=== PATIENT | female | born 1935 | race Caucasian/White ===

== ENCOUNTER → 2017-07-07 | Day surgery (SDC) | payer MEDICARE ==
[~2017-07-07] MED LIST: BUPIVACAINE HCL 0.5% 10ML MPF VIAL INJ ONE; CEFAZOLIN SOD 2 GM/D5W 50ML 50 ML IV ONE; DEXAMETHASONE SOD PHOS INJ 4 MG/ML VIAL ONE; EPHEDRINE SULFATE INJ 50 MG/10 ML SYR ONE; FENTANYL CITRATE/PF 100MCG/2 ML INJ ONE; HYDRALAZINE HCL25 MG PO; LIDOCAINE HCL 2% LOCAL INJ 5 ML SDV VIAL INJ ONE; MIDAZOLAM HCL 2 MG/2 ML VIAL ONE; NEOSTIGMINE 1 MG/ML 10ML VIAL ONE; ONDANSETRON HCL INJ 2 MG/ML VIAL ONE; PANTOPRAZOLE SO40 MG PO; PRAMIPEXOLE DIHY1 MG PO; PROPOFOL IV EMULSION 10 MG/ML 20 ML VIAL ONE; SEVOFLURANE INHAL SOLN 250 ML PEN BTL ONE; TRAZODONE HCL50 MG PO
--- NOTE | 2017-07-27 01:18 | Operative Report ---
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 TITLE OF OPERATION: Garay bunionectomy of the left foot. PROCEDURE IN DETAIL: The patient was taken to the operating room in a mildly sedated state before placing on the operating table in supine position. Following induction of general anesthetic, the left lower extremity was elevated to 60 degrees to exsanguinate before inflating the pneumatic thigh tourniquet to 350 mmHg for hemostasis. Left lower extremity was placed upon the operating table prior to performing the following. Procedure #1 is the modified Cedrick bunionectomy: An approximately 6-cm dorsal linear incision made across the dorsal aspect of 1st metatarsophalangeal joint of the left foot, which allowed for deliverance of the head of the more of the phalanx into a more suitable position. A medial eminence resected. All those, areas it was noted that the digit was in adequate alignment. A 0.045-K-wire was used to at the toe. The base of proximal phalanx having been removed and the medial eminence removed, a 0.062-K-wire was introduced [id number] utilizing retrograde technique. This met head to stabilize. The area was irrigated, closed with 3-0 Vicryl, 4-0 nylon. K-wire was then cut to its appropriate length. The patient left the operating room with vital signs stable in apparent satisfactory condition having tolerated both anesthetic and procedure very well. Job#: [id number] CQ
== END | disposition home or self-care (01) ==
LOC: OR 08:25
PROVIDERS: ATTEND Podiatrist Foot Surgery
DX: M20.12 Hallux valgus (acquired), left foot (principal); M19.072 Primary osteoarthritis, left ankle and foot; I10 Essential (primary) hypertension; G25.81 Restless legs syndrome; Z88.1 Allergy status to other antibiotic agents; Z01.810 Encounter for preprocedural cardiovascular examination
CPT/HCPCS: 28292; 93005; J1100; J2001; J2250; J2405; J2710; Q4100; 76000

== ENCOUNTER → 2018-10-02 | Day surgery (SDC) | payer MEDICARE ==
[2018-10-01 15:22] LABS: BASOPHILS % 0.2 % (0.0-1.0); EOSINOPHILS # (AUTO) 0.1 (0.0-0.4); EOSINOPHILS % 2.7 % (0.0-6.0); HEMATOCRIT 34.7 % (34.2-44.1); HEMOGLOBIN 11.4 g/dL (12.0-16.0); LYMPHOCYTES # (AUTO) 1.1 (1.0-3.2); LYMPHOCYTES % 21.6 % (18.0-39.1); MEAN CORPUSCULAR HEMOGLOBIN 31.7 pg (28-32); MEAN CORPUSCULAR HGB CONC 32.9 g/dL (31-35); MEAN CORPUSCULAR VOLUME 96.4 fL (81-99); MONOCYTES # (AUTO) 0.5 (0.2-0.8); MONOCYTES % 9.3 % (4.4-11.3); NEUTROPHILS # (AUTO) 3.2 (2.1-6.9); NEUTROPHILS % 65.6 % (38.7-80.0); PLATELET COUNT 177 x10e3/uL (140-360); RED CELL DISTRIBUTION WIDTH 13.1 % (11.7-14.4)
[2018-10-01 15:42] LABS: CALCIUM 9.6 mg/dL (8.4-10.2); CREATININE, SERUM 1.41 mg/dL (0.57-1.11)
[~2018-10-02] MED LIST changes: +ACETAMINOPHEN/CODEINE 300MG - 30MG TAB ONE; +ATROPINE SULFATE 1 MG/ML VIAL ONE; -BUPIVACAINE HCL 0.5% 10ML MPF VIAL INJ ONE; +BUPIVACAINE HCL 0.5% INJ 30 ML VIAL INJ ONE; +CEFAZOLIN SOD 1 GM/NS 50ML 50 ML IV ONE; -CEFAZOLIN SOD 2 GM/D5W 50ML 50 ML IV ONE; -EPHEDRINE SULFATE INJ 50 MG/10 ML SYR ONE; +FERROUS SULFAT325 MG PO; +GABAPENTIN300 MG PO; +LOSARTAN-HCTZ1 EAC1 PO; -MIDAZOLAM HCL 2 MG/2 ML VIAL ONE; -NEOSTIGMINE 1 MG/ML 10ML VIAL ONE; +OMEPRAZOLE40 MG PO; -ONDANSETRON HCL INJ 2 MG/ML VIAL ONE; +ONDANSETRON HCL INJ 2MG/ML 2ML 2 MG/ML VIAL ONE; +TEMAZEPAM15 MG PO; +ULTRAM50 MG PO
--- OUTSIDE RECORDS SUMMARY | 2018-10-02 05:11 | XMS REPORT | Clinical Summary ---
Author Author [facility] Address Unknown Phone Unavailable Care Team Providers Care Budget And Policy Analyst Name Role Phone JohnErnesto abernathy PCP Allergies Comments Active Allergy Reactions Severity Noted Date Iodine And Iodide Hives 05/26/2018 Containing Products Neomycin Hives 05/26/2018 Medications End Date Status Medication Sig Dispensed Refills Start Date 06/02/2018 cephalexin (KEFLEX) 250 Take 1 21 capsule 0 MG capsule capsule (250 9 mg total) by mouth 3 (three) times daily for 7 days. 06/02/2018 mupirocin (BACTROBAN) 2 % Apply 1 g 22 g 0 ointment topically 2 9 (two) times daily for 7 days Apply sparingly to affected area. 06/05/2018 acetaminophen-codeine Take 1-2 15 tablet 0 (TYLENOL #3) 300-30 mg tablets by 9 per tablet mouth every 6 (six) hours as needed for Pain for up to 10 days. Max Daily Amount: 8 tablets Active Problems Not on file Encounters Care Team Description Date Type Specialty Alhaji Bocanegra MD Laceration of left lower leg with tendon involvement, initial encounter (Primary Dx); Anticoagulated; Leg pain, lateral, left 05/26/2018 Emergency Emergency Medicine after 10/01/2017 Social History Date Tobacco Use Types Packs/Day Years Used Never Assessed Sex Assigned at Date Recorded Not on file Industry Job Start Date Occupation Not on file Not on file Not on file Travel End Travel History Travel Start No recent travel history available. Last Filed Vital Signs Time Taken Vital Sign Reading 05/26/2018 4:32 AM ANIMAL CRUELTY INVESTIGATOR Blood Pressure 150/60 05/26/2018 2:30 AM ANIMAL CRUELTY INVESTIGATOR Pulse 84 - Temperature - 05/26/2018 2:30 AM ANIMAL CRUELTY INVESTIGATOR Respiratory Rate 20 05/26/2018 4:32 AM ANIMAL CRUELTY INVESTIGATOR Oxygen Saturation 100% - Inhaled Oxygen - Concentration 05/26/2018 2:30 AM ANIMAL CRUELTY INVESTIGATOR Weight 65.8 kg (145 lb) 05/26/2018 2:30 AM ANIMAL CRUELTY INVESTIGATOR Height 157.5 cm (5' 2") 05/26/2018 2:30 AM ANIMAL CRUELTY INVESTIGATOR Body Mass Index 26.52 Plan of Treatment Not on file Procedures Comments Procedure Name Priority Date/Time Associated Diagnosis XR LEG/TIBIA & FIBULA STAT 05/26/2018 LEFT 2 VIEWS 3:04 AM ANIMAL CRUELTY INVESTIGATOR PROC-LAC Routine 05/26/2018 REPAIR-SCALP,ARMS,LEGS-CO 2:31 AM ANIMAL CRUELTY INVESTIGATOR MPLEX-17.6-22.5 CM after 10/01/2017 Results * XR leg / tibia and fibula 2 views left (05/26/2018 3:04 AM ANIMAL CRUELTY INVESTIGATOR) Specimen Narrative Performed At FINAL REPORT [facility] RAD, LEG, TIBIA \\T\\ FIBULA, 2 VIEWS, LEFT CLINICAL INDICATION:laceration COMPARISON: None FINDINGS: Frontal and crosstable lateral views of the left tibia and fibula were obtained. There is a laceration in the lateral aspect of the distal leg.There is mild diffuse soft tissue edema. There is no radiopaque foreign body. There is no acute fracture or dislocation. There is mild spurring of the lateral tibial spine. IMPRESSION: Left leg laceration. No acute fracture or radiopaque foreign body. Signed: Angélica Lincoln MD Report Verified Date/Time:05/26/2018 03:06:37 Reading Location: [facility] B1 C013Y CT Body Reading Room Procedure Note Interface, External Ris In - 05/26/2018 3:08 AM ANIMAL CRUELTY INVESTIGATOR FINAL REPORT RAD, LEG, TIBIA \\T\\ FIBULA, 2 VIEWS, LEFT CLINICAL INDICATION: laceration COMPARISON: None FINDINGS: Frontal and crosstable lateral views of the left tibia and fibula were obtained. There is a laceration in the lateral aspect of the distal leg. There is mild diffuse soft tissue edema. There is no radiopaque foreign body. There is no acute fracture or dislocation. There is mild spurring of the lateral tibial spine. IMPRESSION: Left leg laceration. No acute fracture or radiopaque foreign body. Signed: Angélica Lincoln MD Report Verified Date/Time: 05/26/2018 03:06:37 Reading Location: [facility] B1 C013Y CT Body Reading Room Performing Organization Address City/State/Zipcode Phone Number [facility] * Lac Repair (05/26/2018 2:31 AM ANIMAL CRUELTY INVESTIGATOR) Narrative Performed At Jon Juan NP 05/26/20183:46 AM Lac Repair Date/Time: 05/26/2018 3:41 AM Performed by: Jon Juan NP Authorized by: Alhaji Bocanegra MD Consent: Verbal consent obtained. Risks and benefits: risks, benefits and alternatives were discussed Consent given by: patient Patient understanding: patient states understanding of the procedure being performed Required items: required blood products, implants, devices, and special equipment available Patient identity confirmed: verbally with patient Time out: Immediately prior to procedure a "time out" was called to verify the correct patient, procedure, equipment, patient support tech and site/side marked as required. Body area: lower extremity Location details: left lower leg Laceration length: 18 (#1 lac - 16 cm #2 - SQ 2 cm) cm Foreign bodies: no foreign bodies Nerve involvement: none Anesthesia: local infiltration Anesthesia: Local Anesthetic: lidocaine 1% without epinephrine Anesthetic total: 15 mL Sedation: Patient sedated: no Preparation: Patient was prepped and draped in the usual sterile fashion. Irrigation solution: saline Irrigation method: syringe Amount of cleaning: extensive Debridement: none Degree of undermining: none Skin closure: Ethilon Subcutaneous closure: 3-0 Vicryl Number of sutures: 18 Technique: complex, horizontal mattress and retention suture Approximation: loose (unable to pull completely closed, friable skin, sutures tearing through skin, four 1 inch steri strips over sutures.) Approximation difficulty: complex Dressing: pressure dressing Immediate Post-Procedure Note Assistants to the procedure: None Pre-procedure diagnosis: lac Post-procedure diagnosis: lac Procedures Performed: Lac Repair Specimens removed: None Estimated blood loss (mL): None Complications: None Type of anesthesia: None Grafts or Implants: None after 10/01/2017 Insurance Payer Benefit Subscriber ID Type Phone Address Plan / Group [facility] xxxxxxxxxxx [facility] Contracted ALL
--- OUTSIDE RECORDS SUMMARY | 2018-10-02 05:11 | XMS REPORT ---
Author Author [facility] Address Unknown Phone Unavailable Care Team Providers Care Real Estate Administrative Assistant Name Role Phone Unavailable Unavailable Problems This patient has no known problems. Allergies, Adverse Reactions, Alerts This patient has no known allergies or adverse reactions. Medications This patient has no known medications. Results Test Description Test Time Test Comments Text Results Atomic Results Result Comments RAD, LEG, TIBIA 2018-05-26 03:06:00 Reason for exam:->laceration FINAL REPORT RAD, LEG, TIBIA \T\ FIBULA, 2 VIEWS, LEFT CLINICAL INDICATION: laceration [...] acute fracture or radiopaque foreign body. Signed: Yeu Lucia Verified Date/Time: 05/26/2018 03:06:37 Reading Location: [facility] B1 C013Y CT Body Reading Room
[2018-10-02 08:30] VITALS: BP 132/66
--- NOTE | 2018-10-02 16:02 | Operative Report ---
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 OPERATIVE PROCEDURES: An arthroplasty 2nd digit left foot and excise neuroma 2nd interspace left and excise neuroma 3rd interspace left. DESCRIPTION OF PROCEDURE: The patient was placed on the OR table in the supine position. The left lower extremity was prepped and draped in the usual manner. A general anesthetic was administered and hemostasis accomplished using a pneumatic cuff, set at 350 mmHg at thigh level. PROCEDURE #1: The excision of the neuroma 2nd interspace. An incision approximately 3 cm in length was made in the interspace between the 2nd and 3rd metatarsal head. The incision was deepened, blood vessels were either ligated or retracted. The neuroma was identified and isolated. Both distal branches were resected and then the entire neuroma was removed with resection behind the metatarsal head. The wound was flushed with sterile saline solution. Subcutaneous tissue closed with 3-0 Vicryl and skin closed with 4-0 nylon. PROCEDURE #2: The excision of the neuroma 3rd interspace. An incision approximately 3 cm in length was made in the interspace between the 2nd and 3rd metatarsal head. The incision was deepened, blood vessels were either ligated or retracted. The neuroma was identified and isolated. Both distal branches were resected and then the entire neuroma was removed with resection behind the metatarsal head. The wound was flushed with sterile saline solution. Subcutaneous tissue closed with 3-0 Vicryl and skin closed with 4-0 nylon. PROCEDURE #3: Arthroplasty 2nd digit. Two semi-elliptical incisions about a 1.5 cm were made on the dorsal aspect of the proximal interphalangeal joint and closed. Skin was removed. This exposed the proximal interphalangeal joint, which was then opened from medial to lateral and the collateral ligaments were cut. This time, using a power saw, the articular cartilage on the head of the proximal phalanx and the base of the middle phalanx was removed. Small 1 cm incision was then made on the dorsal aspect of the 2nd metatarsophalangeal joint. The extensor tendons were released. Also, the capsule at the second metatarsophalangeal joint was released on the dorsal, medial, and lateral aspect with a 15 blade. At this time, a 0.045 K-wire was inserted from proximal to distal through the middle and distal phalanx. It was then retrograded back through the proximal phalanx and with the toe held in proper alignment, the K-wire was driven across the metatarsophalangeal joint into the 2nd metatarsal. The wire was then back over the distal aspect of the toe, cut to length of 1 cm and a pin protector applied. The extensor tendons were then reapproximated with 3-0 Vicryl and the skin was closed with 4-0 nylon. Following the procedure, 9 mL of 0.5 Marcaine and 1 mL of Decadron were injected to minimize postop pain. A sterile compression dressing was then applied. At this time, the pneumatic cuff was released and a reflex hyperemia was observed to all digits. The patient tolerated the procedures and anesthesia well and left the OR to recovery in good condition with vital signs stable. S ADAN Robbins (Char[place])/SELWYN /[id number]
== END | disposition home or self-care (01) ==
LOC: OR 05:00
PROVIDERS: ATTEND Podiatrist Foot & Ankle Surgery
DX: G57.62 Lesion of plantar nerve, left lower limb (principal); M20.42 Other hammer toe(s) (acquired), left foot; I12.9 Hypertensive chronic kidney disease with stage 1 through stage 4 chronic kidney disease, or unspecified chronic kidney disease; N18.9 Chronic kidney disease, unspecified; Z88.1 Allergy status to other antibiotic agents; Z91.041 Radiographic dye allergy status; Z01.812 Encounter for preprocedural laboratory examination; Z86.718 Personal history of other venous thrombosis and embolism
CPT/HCPCS: 28080 ×2; 28285; 36415; 80048; 85025; C1713; J0461; J0690; J1100; J2001; J2405; J2704

== ENCOUNTER → 2018-12-13 | Outpatient (CLI) | payer MEDICARE ==
[~2018-12-13] MED LIST changes: -ACETAMINOPHEN/CODEINE 300MG - 30MG TAB ONE; -ATROPINE SULFATE 1 MG/ML VIAL ONE; -BUPIVACAINE HCL 0.5% INJ 30 ML VIAL INJ ONE; -CEFAZOLIN SOD 1 GM/NS 50ML 50 ML IV ONE; -DEXAMETHASONE SOD PHOS INJ 4 MG/ML VIAL ONE; -FENTANYL CITRATE/PF 100MCG/2 ML INJ ONE; -LIDOCAINE HCL 2% LOCAL INJ 5 ML SDV VIAL INJ ONE; -ONDANSETRON HCL INJ 2MG/ML 2ML 2 MG/ML VIAL ONE; -PROPOFOL IV EMULSION 10 MG/ML 20 ML VIAL ONE; -SEVOFLURANE INHAL SOLN 250 ML PEN BTL ONE
== END ==
LOC: RAD 09:46
PROVIDERS: ATTEND Internal Medicine
DX: I82.411 Acute embolism and thrombosis of right femoral vein (principal)
CPT/HCPCS: 93971

== ENCOUNTER → 2019-11-20 | Outpatient (CLI) | payer MEDICARE ==
--- NOTE | 2019-11-20 14:45 | Diagnostic Imaging Report ---
EXAMINATION: CHEST 2 VIEWS INDICATION: Pre-operative COMPARISON: None FINDINGS: LINES/TUBES:None LUNGS:The lungs are well-inflated. Right greater than left mild biapical pleural parenchymal thickening/scarring. No focal consolidation or pulmonary edema. PLEURA:No pleural effusion or pneumothorax. MEDIASTINUM:The cardiomediastinal silhouette appears normal in size and shape. Atherosclerotic calcifications of the thoracic aorta. BONES/SOFT TISSUES:No acute osseous injury. ABDOMEN:No free air under the diaphragm. IMPRESSION: No focal pneumonia or pulmonary edema. Signed by: Payam Harman MD on 11/20/2019 2:42 PM
== END ==
LOC: RAD 13:52
PROVIDERS: ATTEND Internal Medicine
DX: Z01.818 Encounter for other preprocedural examination (principal)
CPT/HCPCS: 71046

== ENCOUNTER → 2020-07-16 | Outpatient (CLI) | payer MEDICARE | LOC: RAD 08:27 | PROVIDERS: ATTEND Internal Medicine | DX: M79.89 Other specified soft tissue disorders (principal); I73.9 Peripheral vascular disease, unspecified; L98.499 Non-pressure chronic ulcer of skin of other sites with unspecified severity | CPT/HCPCS: 93306; 93925 ==

== ENCOUNTER 2020-08-17 07:30 | Inpatient (IN) | payer MEDICARE ==
[2020-08-12 11:32] LABS: BASOPHILS % 0.8 % (0.0-1.0); EOSINOPHILS # (AUTO) 0.1 (0.0-0.4); EOSINOPHILS % 2.3 % (0.0-6.0); HEMATOCRIT 34.4 % (34.2-44.1); HEMOGLOBIN 10.5 g/dL (12.0-16.0); LYMPHOCYTES # (AUTO) 1.4 (1.0-3.2); LYMPHOCYTES % 25.8 % (18.0-39.1); MEAN CORPUSCULAR HEMOGLOBIN 28.5 pg (28-32); MEAN CORPUSCULAR HGB CONC 30.5 g/dL (31-35); MEAN CORPUSCULAR VOLUME 93.5 fL (81-99); MONOCYTES # (AUTO) 0.5 (0.2-0.8); MONOCYTES % 9.3 % (4.4-11.3); NEUTROPHILS # (AUTO) 3.2 (2.1-6.9); NEUTROPHILS % 61.2 % (38.7-80.0); PLATELET COUNT 151 x10e3/uL (140-360); RED BLOOD COUNT 3.68 x10e6/uL (3.6-5.1); RED CELL DISTRIBUTION WIDTH 19.8 % (11.7-14.4)
[2020-08-12 11:50] LABS: ALBUMIN 3.9 g/dL (3.5-5.0); ALBUMIN/GLOBULIN RATIO 1.1 (0.8-2.0); ANION GAP 17.4 mmol/L (8-16); CALCIUM 9.3 mg/dL (8.4-10.2); CHOL/HDL RATIO 3.5 (3.0-3.6); CREATININE, SERUM 1.52 mg/dL (0.57-1.11); POTASSIUM 4.4 mmol/L (3.5-5.1)
[2020-08-17] VITALS (30 sets, daily range): BP systolic 55–158; BP diastolic 29–78
[~2020-08-17] VITALS: Ht 154.9 cm; Wt 61.2 kg
[2020-08-17] MEDS: ROPINIROLE HCL 2 MG TAB PO SCH (01:00)
[~2020-08-17 07:30] MED LIST changes: +ALLOPURINOL300 MG PO; +BENICAR20 MG PO; +FUROSEMIDE40 MG PO; +METOPROLOL TART50 MG PO; +ROPINIROLE HCL1 MG PO
[2020-08-17] MEDS ORDERED: FAMOTIDINE 20 MG/2 ML VIAL IV ONE (08:23)
[2020-08-17] MEDS ORDERED: METHYLPREDNISOLONE SOD SUCC 125 MG/2ML VIAL ONE (08:23)
[2020-08-17] MEDS ORDERED: DIPHENHYDRAMINE HCL 25 MG CAP ONE (08:23)
[2020-08-17] MEDS ORDERED: FENTANYL CITRATE/PF 100MCG/2 ML INJ ONE (09:33)
[2020-08-17] MEDS ORDERED: LIDOCAINE HCL 2% LOCAL 20 ML VIAL ONE ×2 (09:33→19:17)
[2020-08-17] MEDS ORDERED: MIDAZOLAM HCL 2 MG/2 ML VIAL ONE (09:33)
[2020-08-17] MEDS ORDERED: HEPARIN SOD/SOD CHLORIDE 2,000 ML ONE ×2 (09:34→19:18)
[2020-08-17] MEDS ORDERED: IOPAMIDOL 300MG/ML 100 ML INFUS..BTL IV ONE (09:34)
[2020-08-17] MEDS ORDERED: CLOPIDOGREL BISULFATE 75 MG TAB ONE (11:11)
[2020-08-17] MEDS ORDERED: ASPIRIN 325 MG TAB ONE (11:11)
[2020-08-17 15:15] LABS: BASOPHILS % 0.2 % (0.0-1.0); EOSINOPHILS % 0.2 % (0.0-6.0); HEMATOCRIT 26.1 % (34.2-44.1); HEMOGLOBIN 7.8 g/dL (12.0-16.0); LYMPHOCYTES # (AUTO) 1.4 (1.0-3.2); LYMPHOCYTES % 23.8 % (18.0-39.1); MEAN CORPUSCULAR HEMOGLOBIN 28.4 pg (28-32); MEAN CORPUSCULAR HGB CONC 29.9 g/dL (31-35); MEAN CORPUSCULAR VOLUME 94.9 fL (81-99); MONOCYTES # (AUTO) 0.1 (0.2-0.8); MONOCYTES % 2.1 % (4.4-11.3); NEUTROPHILS # (AUTO) 4.2 (2.1-6.9); NEUTROPHILS % 73.2 % (38.7-80.0); PLATELET COUNT 170 x10e3/uL (140-360); RED BLOOD COUNT 2.75 x10e6/uL (3.6-5.1); RED CELL DISTRIBUTION WIDTH 19.6 % (11.7-14.4)
[2020-08-17] MEDS ORDERED: ULTRACET TABLE1 EACH PO (16:27)
[2020-08-17] MEDS ORDERED: SODIUM CHLORIDE 0.9% 1000ML 1,000 ML ONE (16:56)
[2020-08-17] MEDS ORDERED: SODIUM CHLORIDE 0.9% 250ML 250 ML IV ONE (17:30)
[2020-08-17] MEDS ORDERED: OMEPRAZOLE 20 MG CAP PO PRN (18:00)
[2020-08-17] MEDS ORDERED: VERAPAMIL HCL 2.5 MG/ML 2 ML VIAL ONE (19:17)
[2020-08-17] MEDS ORDERED: HEPARIN SOD (PORCINE) 1000 UNIT/ML 30ML ONE (19:17)
[2020-08-17] MEDS ORDERED: IOPAMIDOL 300MG/ML 50ML INFUS..BTL IV ONE (19:19)
[2020-08-17] MEDS ORDERED: PHENYLEPHRINE HCL 1% 10 MG/ML VIAL ONE (19:49)
[2020-08-17] MEDS ORDERED: SODIUM CHLORIDE 0.9% 100 ML ONE (19:49)
[2020-08-17] MEDS ORDERED: SODIUM CHLORIDE 0.9% 250ML 250 ML ONE (23:56)
[2020-08-18] VITALS (18 sets, daily range): BP systolic 82–153; BP diastolic 41–110
[2020-08-18] MEDS: TRAMADOL/APAP 37.5MG-325MG TAB PO PRN (01:00)
[2020-08-18] MEDS: SODIUM CHLORIDE 0.9% 1000ML 1,000 ML IV SCH ×3 (03:00→13:04)
[2020-08-18 04:42] LABS: BASOPHILS % 0.1 % (0.0-1.0); HEMATOCRIT 32.2 % (34.2-44.1); HEMOGLOBIN 10.3 g/dL (12.0-16.0); LYMPHOCYTES # (AUTO) 0.7 (1.0-3.2); LYMPHOCYTES % 6.3 % (18.0-39.1); MEAN CORPUSCULAR HEMOGLOBIN 29.3 pg (28-32); MEAN CORPUSCULAR VOLUME 91.5 fL (81-99); MONOCYTES # (AUTO) 0.4 (0.2-0.8); MONOCYTES % 3.7 % (4.4-11.3); NEUTROPHILS # (AUTO) 10.1 (2.1-6.9); NEUTROPHILS % 89.3 % (38.7-80.0); PLATELET COUNT 127 x10e3/uL (140-360); RED BLOOD COUNT 3.52 x10e6/uL (3.6-5.1); RED CELL DISTRIBUTION WIDTH 17.4 % (11.7-14.4)
[2020-08-18 05:04] LABS: ALBUMIN 3.2 g/dL (3.5-5.0); ALBUMIN/GLOBULIN RATIO 1.4 (0.8-2.0); ANION GAP 16.8 mmol/L (8-16); CALCIUM 8.3 mg/dL (8.4-10.2); CREATININE, SERUM 1.44 mg/dL (0.57-1.11); POTASSIUM 4.8 mmol/L (3.5-5.1)
[2020-08-18] MEDS: OLMESARTAN 20 MG TAB PO SCH (08:02)
[2020-08-18] MEDS: FERROUS SULFATE 325 MG TAB PO SCH (08:02)
[2020-08-18] MEDS: METOPROLOL TARTRATE 50 MG TAB PO SCH (08:03)
[2020-08-18] MEDS: ALLOPURINOL 300 MG TAB PO SCH (08:04)
[2020-08-18] MEDS ORDERED: FUROSEMIDE 40 MG TAB PO SCH (09:00)
[2020-08-18] MEDS: ROPINIROLE HCL 2 MG TAB PO SCH (21:51)
[2020-08-19] MEDS: SODIUM CHLORIDE 0.9% 1000ML 1,000 ML IV SCH (00:44)
[2020-08-19 02:22] VITALS: BP 146/46
[2020-08-19] MEDS: TRAMADOL/APAP 37.5MG-325MG TAB PO PRN (04:45)
[2020-08-19 06:40] VITALS: BP 149/52
[2020-08-19 07:56] VITALS: BP 143/62
[2020-08-19] MEDS ORDERED: ASPIRIN81 MG PO (08:20)
[2020-08-19 08:44] LABS: BASOPHILS % 0.2 % (0.0-1.0); EOSINOPHILS # (AUTO) 0.1 (0.0-0.4); HEMATOCRIT 28.5 % (34.2-44.1); HEMOGLOBIN 9.4 g/dL (12.0-16.0); LYMPHOCYTES # (AUTO) 1.2 (1.0-3.2); LYMPHOCYTES % 13.9 % (18.0-39.1); MEAN CORPUSCULAR HEMOGLOBIN 30.3 pg (28-32); MEAN CORPUSCULAR VOLUME 91.9 fL (81-99); MONOCYTES # (AUTO) 0.5 (0.2-0.8); NEUTROPHILS # (AUTO) 6.5 (2.1-6.9); NEUTROPHILS % 78.2 % (38.7-80.0); PLATELET COUNT 117 x10e3/uL (140-360); RED CELL DISTRIBUTION WIDTH 18.1 % (11.7-14.4)
[2020-08-19] MEDS: FERROUS SULFATE 325 MG TAB PO SCH (09:00)
[2020-08-19 09:09] LABS: CALCIUM 8.3 mg/dL (8.4-10.2); CREATININE, SERUM 1.02 mg/dL (0.57-1.11)
[2020-08-19] MEDS: OLMESARTAN 20 MG TAB PO SCH (09:52)
[2020-08-19] MEDS: METOPROLOL TARTRATE 50 MG TAB PO SCH (09:53)
[2020-08-19] MEDS: ALLOPURINOL 300 MG TAB PO SCH (09:53)
[2020-08-19 11:29] VITALS: BP 142/60
[2020-08-19] MEDS ORDERED: CLOPIDOGREL75 MG PO (13:25)
== END 2020-08-19 14:49 | disposition home or self-care (01) | DRG 982 ==
LOC: CATH LAB 07:30 → CATH LAB V 15:25 → ICU 20:30 → OBSVTOIN 08-18 14:37 → MED/SURG2 08-18 15:19
PROVIDERS: ADMIT Internal Medicine; ATTEND Internal Medicine
PROC: 047P3Z1 Dilation of Right Anterior Tibial Artery using Drug-Coated Balloon, Percutaneous Approach (ICD-10-PCS; principal; 2020-08-17)
PROC: 30233N1 Transfusion of Nonautologous Red Blood Cells into Peripheral Vein, Percutaneous Approach (ICD-10-PCS; 2020-08-17)
PROC: B41D1ZZ Fluoroscopy of Aorta and Bilateral Lower Extremity Arteries using Low Osmolar Contrast (ICD-10-PCS; 2020-08-17)
PROC: B41D1ZZ Fluoroscopy of Aorta and Bilateral Lower Extremity Arteries using Low Osmolar Contrast (ICD-10-PCS; 2020-08-17)
DX: I97.418 Intraoperative hemorrhage and hematoma of a circulatory system organ or structure complicating other circulatory system procedure (principal); I13.0 Hypertensive heart and chronic kidney disease with heart failure and stage 1 through stage 4 chronic kidney disease, or unspecified chronic kidney disease; I50.32 Chronic diastolic (congestive) heart failure; D62 Acute posthemorrhagic anemia; L97.819 Non-pressure chronic ulcer of other part of right lower leg with unspecified severity; I70.238 Atherosclerosis of native arteries of right leg with ulceration of other part of lower leg; I97.638 Postprocedural hematoma of a circulatory system organ or structure following other circulatory system procedure; N18.30 Chronic kidney disease, stage 3 unspecified; G25.81 Restless legs syndrome; G47.00 Insomnia, unspecified; M10.9 Gout, unspecified; I87.2 Venous insufficiency (chronic) (peripheral); R41.0 Disorientation, unspecified
CPT/HCPCS: 36247; 36415; 37228; 71045; 75625; 75716; 76937; 80048; 80053; 80061; 83880; 85025; 85347; 85730; 86850; 86900; 86920; 93005; 99152; 99153; C1760; C1769; C1887; C1894; G0378; J1644; J2001; J2250; J2370; J2930; J3010; J7030; J7050; P9016; Q9967; U0002